=== PATIENT | female | born 2000 | race African-American/Black ===

== ENCOUNTER 2019-12-13 20:41 | Emergency (ER) | payer OTHER ==
[~2019-12-13] VITALS: Ht 185.4 cm; Wt 68.0 kg
--- NOTE | 2019-12-13 20:49 | NUR ---
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
--- NOTE | 2019-12-13 21:21 | NUR ---
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
--- NOTE | 2019-12-13 21:24 | NUR ---
PT AMB TO ROOM NO ASSIST REQ
[2019-12-13 21:31] VITALS: BP 147/85
--- NOTE | 2019-12-13 21:32 | NUR ---
THIS IS A 1Y F THAT COMES IN FOR CHEST PAIN/ TIGHTNESS. PT REPORTS PAIN BEGAN ABOUT TWO WEEKS AGO WHEN WORKING. 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 PT REPORTS A NEGATIVE COVID TEST LAST WEEK BUT PAIN IS STILL CONSTANT PT WENT BACK TO WORK TODAY AND NOTICED PAIN INCREASING. PT CONNECTED TO ALL MONITORING VSS NADN
[2019-12-13 22:15] LABS: BASOPHILS # (AUTO) 0.02 x10^3/uL (0-0.3); BASOPHILS % (AUTO) 0 % (0-1); EOSINOPHILS # (AUTO) 0.09 x10^3/uL (0-0.8); EOSINOPHILS % (AUTO) 1 % (1-7); LYMPHOCYTES # (AUTO) 1.52 x10^3/uL (1-6.1); LYMPHOCYTES % (AUTO) 19 % (22-44); MD NO; MEAN CORPUSCULAR HEMOGLOBIN 27.7 pg (27.0-34.8); MEAN CORPUSCULAR HGB CONC 32.2 g/dL (32.4-35.8); MEAN CORPUSCULAR VOLUME 85.8 fL (80-100); MONOCYTES # (AUTO) 0.45 x10^3/uL (0-1.4); MONOCYTES % (AUTO) 6 % (2-9); NEUTROPHILS # (AUTO) 5.87 x10^3/uL (1.8-8.0); NEUTROPHILS % (AUTO) 74 % (42-75); PLATELET COUNT 348 x10^3/uL (130-400); RED BLOOD COUNT 4.61 x10^6/uL (3.82-5.3); RED CELL DISTRIBUTION WIDTH 13.5 % (9.6-15.2)
[2019-12-13 22:26] LABS: ALBUMIN 3.4 g/dL (3.4-5.0); ANION GAP 8 mmol/L (5-15); CALCIUM 8.8 mg/dL (8.5-10.1); CHLORIDE 108 mmol/L (98-107); CREATININE 0.74 mg/dL (0.55-1.02)
[2019-12-13 22:30] LABS: TROPONIN I < 0.015 ng/mL (0.000-0.045)
--- NOTE | 2019-12-13 23:04 | NUR ---
Patient/Caregiver given discharge instructions and they have confirmed that they understand the instructions. Patient ambulatory with steady gait.
== END 2019-12-13 23:05 | disposition home or self-care (01) ==
LOC: ED 22:19
DX: R07.89 Other chest pain (principal); M94.0 Chondrocostal junction syndrome [Tietze]
CPT/HCPCS: 36415; 71045; 80048; 82040; 84484; 84703; 85025; 93005; 99284; 99285